=== PATIENT | female | born 1980 | race Caucasian/White ===

== ENCOUNTER 2016-12-12 15:36 | Emergency (ER) | payer SELFPAY ==
--- NOTE | 2016-12-12 16:09 | ED.ADGEN ---
Past History Past Medical History: Other Past Surgical History: Tubal ligation Alcohol Use: Occasionally Drug Use: Marijuana Adult General HPI HPI Patient is a 36-year-old female presents emergency department complaining of dysuria as well as pain associated with a herpes outbreak. Patient states that she is out of her Valtrex which usually takes strain and outbreak. She reports increased urinary frequency but denies any fevers, chills, nausea, vomiting. Review of Systems Review of Systems Constitutional: Denies fever or chills [] Eyes: Denies change in visual acuity, redness, or eye pain [] HENT: Denies nasal congestion or sore throat [] Respiratory: Denies cough or shortness of breath [] Cardiovascular: No additional information not addressed in HPI [] GI: Denies abdominal pain, nausea, vomiting, bloody stools or diarrhea [] : Denies dysuria or hematuria [] Musculoskeletal: Denies back pain or joint pain [] Integument: Denies rash or skin lesions [] Neurologic: Denies headache, focal weakness or sensory changes [] Endocrine: Denies polyuria or polydipsia [] Current Medications Current Medications Current Medications Medications (Trade) Dose Ordered Sig/Ernestine Start Time Stop Time Status Last Admin Dose Admin Ceftriaxone Sodium (Rocephin Im) 1 gm 1X ONCE 12/12/16 16:45 12/12/16 16:46 DC 12/12/16 16:35 1 GM Ceftriaxone Sodium (Rocephin) 1 gm STK-MED ONCE 12/12/16 16:26 12/12/16 16:27 DC Lidocaine HCl (Xylocaine 2% Topical 30gm Tube) 1 natalie 1X ONCE 12/12/16 16:45 12/12/16 16:46 DC 12/12/16 16:38 1 NATALIE Allergies Allergies Allergies Coded Allergies Type Severity Reaction Last Updated Verified No Known Drug Allergies 12/12/16 No Physical Exam Physical Exam Constitutional: Well developed, well nourished, no acute distress, non-toxic appearance. [] HENT: Normocephalic, atraumatic, bilateral external ears normal, oropharynx moist, no oral exudates, nose normal. [] Eyes: PERRLA, EOMI, conjunctiva normal, no discharge. [] Neck: Normal range of motion, no tenderness, supple, no stridor. [] Cardiovascular:Heart rate regular rhythm, no murmur [] Lungs & Thorax: Bilateral breath sounds clear to auscultation [] Abdomen: Bowel sounds normal, soft, no tenderness, no masses, no pulsatile masses. [] Skin: Warm, dry, no erythema, no rash. [] Back: No tenderness, no CVA tenderness. [] Extremities: No tenderness, no cyanosis, no clubbing, ROM intact, no edema. [] Neurologic: Alert and oriented X 3, normal motor function, normal sensory function, no focal deficits noted. [] Psychologic: Affect normal, judgement normal, mood normal. [] Current Patient Data Vital Signs Vital Signs Date Time Temp Pulse Resp B/P Pulse Ox O2 Delivery O2 Flow Rate FiO2 12/12/16 16:51 71 16 130/84 100 Room Air 12/12/16 15:45 98.4 EKG EKG [] Radiology/Procedures Radiology/Procedures [] Course & Med Decision Making Course & Med Decision Making Pertinent Labs and Imaging studies reviewed. (See chart for details) Patient was given a dose of Rocephin here in emergency department. I sent her home with prescriptions for Bactrim, Valtrex, and Diflucan. [] Final Impression Final Impression Urinary tract infection, herpes labialis [] Problems: Dragon Disclaimer Dragon Disclaimer This electronic medical record was generated, in whole or in part, using a voice recognition dictation system. MONCHO BELL MD Dec 12, 2016 16:09
[2016-12-12] MEDS ORDERED: HYDR-971 PO (16:20)
[2016-12-12] MEDS ORDERED: FLUC150T PO (16:20)
[2016-12-12] MEDS ORDERED: SULF1TAB23 PO (16:20)
[2016-12-12] MEDS ORDERED: FAMC500T PO (16:20)
[2016-12-12] MEDS ORDERED: CEFTRIAXONE SODIUM 1 GM VIAL IV ONE (16:26)
[2016-12-12] MEDS ORDERED: LIDOCAINE 2% TOPICAL JELLY 30GM TUBE. TP ONE (16:45)
[2016-12-12] MEDS ORDERED: CEFTRIAXONE IM 1 GM VIAL. IM ONE (16:45)
[2016-12-12 16:51] VITALS: BP 130/84
== END 2016-12-12 17:01 | disposition home or self-care (01) ==
LOC: ER 15:36
DX: N39.0 Urinary tract infection, site not specified (principal); B00.1 Herpesviral vesicular dermatitis; F12.10 Cannabis abuse, uncomplicated
CPT/HCPCS: 96372; 99283; J0696

== ENCOUNTER 2017-04-21 17:53 | Emergency (ER) | payer SELFPAY ==
[~2017-04-21] VITALS: Ht 162.6 cm; Wt 72.6 kg
[~2017-04-21 17:53] MED LIST: FAMC500T PO; FLUC150T PO; HYDR-971 PO; SULF1TAB23 PO
[2017-04-21 19:05] VITALS: BP 136/63
--- NOTE | 2017-04-21 19:28 | PHYS DOC ---
Past History Past Medical History: No Pertinent History, Other Past Surgical History: , Tubal ligation Alcohol Use: Heavy Drug Use: None Adult General Chief Complaint Chief Complaint: SKIN PROBLEM HPI HPI Patient is a 36 year old F who presents with arm swelling. One week ago the patient had an injury resulting in a cut on her left arm. 1-2 days ago she noticed swelling in this area. She does not note any other symptoms. No redness or increased pain. No warmth or fever. No other signs of infection. Review of Systems Review of Systems Constitutional: Denies fever or chills [] Eyes: Denies change in visual acuity, redness, or eye pain [] HENT: Denies nasal congestion or sore throat [] Respiratory: Denies cough or shortness of breath [] Cardiovascular: No additional information not addressed in HPI [] GI: Denies abdominal pain, nausea, vomiting, bloody stools or diarrhea [] : Denies dysuria or hematuria [] Musculoskeletal: Denies back pain or joint pain [] Integument: Negative except history of present illness Neurologic: Denies headache, focal weakness or sensory changes [] Endocrine: Denies polyuria or polydipsia [] Family History Family History Porphyria cutanea tarda Current Medications Current Medications Medications reviewed Allergies Allergies Allergies Coded Allergies Type Severity Reaction Last Updated Verified No Known Drug Allergies 12/12/16 No Physical Exam Physical Exam Constitutional: Well developed, well nourished, no acute distress, non-toxic appearance. [] HENT: Normocephalic, atraumatic, bilateral external ears normal, oropharynx moist, no oral exudates, Eyes: PERRLA, EOMI, conjunctiva normal, no discharge. [] Cardiovascular:Heart rate regular rhythm, no murmur [] Lungs & Thorax: Bilateral breath sounds clear to auscultation [] Skin: Warm, dry, no erythema, no rash. [] Extremities: No tenderness, no cyanosis, no clubbing, ROM intact Neurologic: Alert and oriented X 3, normal motor function, normal sensory function, no focal deficits noted. [] Well-healing laceration on the left dorsal forearm with granulation tissue surrounding scab. Swelling noticed surrounding the laceration without warmth, redness or notable tenderness. Not consistent with infection Psychologic: Affect normal, judgement normal, mood normal. [] Current Patient Data Vital Signs Vital Signs Date Time Temp Pulse Resp B/P (MAP) Pulse Ox O2 Delivery O2 Flow Rate FiO2 04/21/17 18:05 98.2 78 18 99 Room Air Course & Med Decision Making Course & Med Decision Making Pertinent Labs and Imaging studies reviewed. (See chart for details) Imaging was declined. Antibiotics were declined Dragon Disclaimer Dragon Disclaimer This chart was dictated in whole or in part using Voice Recognition software in a busy, high-work load, and often noisy Emergency Department environment. It may contain unintended and wholly unrecognized errors or omissions. Departure Departure: Impression: Primary Impression: Seroma due to trauma Disposition: HOME, SELF-CARE Condition: STABLE Patient Instructions: Abscess Additional Instructions: Bhargavi was seen in the emergency room for an arm injury with swelling. No emergency medical condition was found on history or physical exam. Her symptoms were most consistent with seroma, a pocket of plasma. However a pocket of infection or abscess could not be excluded. No antibiotics were initiated this time however she was encouraged to follow up with her primary care doctor in the next 3-5 days for further management. She was given education regarding abscess and advised to return to the emergency room as soon as possible if she develops new or worsening symptoms TASIA PERALTA MD Apr 21, 2017 19:28
== END 2017-04-21 19:30 | disposition home or self-care (01) ==
LOC: ER 17:53
DX: S50.12XA Contusion of left forearm, initial encounter (principal); W45.8XXA Other foreign body or object entering through skin, initial encounter; Y93.89 Activity, other specified; Y92.89 Other specified places as the place of occurrence of the external cause; Y99.8 Other external cause status
CPT/HCPCS: 99281

== ENCOUNTER 2017-09-07 10:08 | Emergency (ER) | payer OTHER ==
[~2017-09-07] VITALS: Ht 162.6 cm; Wt 94.0 kg
[2017-09-07] MEDS ORDERED: IV NORMAL SALINE 1,000ML 1,000 ML IV SCH (10:18)
[2017-09-07 10:36] LABS: BASO # 0.1 x10^3/uL (0.0-0.2); BASO % 1 % (0-3); EOS # 0.1 x10^3/uL (0.0-0.7); EOS % 2 % (0-3); HEMATOCRIT 36.1 % (36.0-47.0); LYMPH # 1.3 x10^3/uL (1.0-4.8); LYMPH % 23 % (24-48); MEAN CORPUSCULAR HEMOGLOBIN 27 pg (25-35); MEAN CORPUSCULAR HGB CONC 33 g/dL (31-37); MEAN CORPUSCULAR VOLUME 80 fL (79-100); MONO # 0.9 x10^3/uL (0.0-1.1); MONO % 16 % (0-9); NEUT # 3.3 x10^3uL (1.8-7.7); NEUT % 58 % (31-73); PLATELET COUNT 221 x10^3/uL (140-400); RED CELL DISTRIBUTION WIDTH 15.2 % (11.5-14.5); WHITE BLOOD COUNT 5.7 x10^3/uL (4.0-11.0)
--- NOTE | 2017-09-07 10:49 | PHYS DOC ---
Past History Past Medical History: No Pertinent History, Other Past Surgical History: , Tubal ligation Smoking: Cigarettes, Less than 1pk/day Alcohol Use: Occasionally Drug Use: None Adult General Chief Complaint Chief Complaint: ABDOMINAL PAIN [facility] HPI 37-year-old female patient complaining of right lower quadrant and suprapubic pain as an intermittent sharp pain that started 4 days ago and became constant since yesterday morning without radiation. Patient complaining of change of pain with suspicion position with her pain is associated with nausea and anorexia. Patient states she was treated for bacterial vaginitis several months ago but still has some discharged with her urine dysuria. Patient denies fever and chills, chest pain, shortness of breath, diarrhea and constipation. Patient states she took ibuprofen without change of her pain. Patient denies having new sexual partner or vaginal bleeding or discharge. Patient has history of tubal ligation and denies . Review of Systems Review of Systems Constitutional: Denies fever or chills [] Eyes: Denies change in visual acuity, redness, or eye pain [] HENT: Denies nasal congestion or sore throat [] Respiratory: Denies cough or shortness of breath [] Cardiovascular: No additional information not addressed in HPI [] GI: Reports abdominal pain, nausea, denied vomiting, bloody stools or diarrhea [ ] : Denies dysuria or hematuria , reports urinary frequency[] Musculoskeletal: Denies back pain or joint pain [] Integument: Denies rash or skin lesions [] Neurologic: Denies headache, focal weakness or sensory changes [] Endocrine: Denies polyuria or polydipsia [] All other systems were reviewed and found to be within normal limits, except as documented in this note. Current Medications Current Medications Current Medications Medications (Trade) Dose Ordered Sig/Ernestine Start Time Stop Time Status Last Admin Dose Admin Ondansetron HCl (Zofran) 4 mg 1X ONCE 09/07/17 10:50 09/07/17 10:51 Sodium Chloride 1,000 ml @ 1,000 mls/hr Q1H 09/07/17 10:18 09/07/17 11:17 Allergies Allergies Allergies Coded Allergies Type Severity Reaction Last Updated Verified No Known Drug Allergies 12/12/16 No Physical Exam Physical Exam Constitutional: Well developed, well nourished, mild distress, non-toxic appearance, anxious. [] HENT: Normocephalic, atraumatic, bilateral external ears normal, oropharynx moist, no oral exudates, nose normal. [] Eyes: PERRLA, EOMI, conjunctiva normal, no discharge. [] Neck: Normal range of motion, no tenderness, supple, no stridor. [] Cardiovascular:Heart rate regular rhythm, no murmur [] Lungs & Thorax: Bilateral breath sounds clear to auscultation [] Abdomen: Bowel sounds normal, soft, no tenderness, no masses, no pulsatile masses, right lower quadrant and suprapubic guarding. [] Skin: Warm, dry, no erythema, no rash. [] Back: No tenderness, no CVA tenderness. [] Extremities: No tenderness, no cyanosis, no clubbing, ROM intact, no edema. [] Neurologic: Alert and oriented X 3, normal motor function, normal sensory function, no focal deficits noted. [] Psychologic: Affect normal, judgement normal, mood normal. [] Pelvic exam with present of N showed moderate vaginal discharge with left adnexal fullness Current Patient Data Vital Signs Vital Signs Date Time Temp Pulse Resp B/P (MAP) Pulse Ox O2 Delivery O2 Flow Rate FiO2 09/07/17 10:19 97.8 93 18 99 Room Air Lab Results Laboratory Tests Test 09/07/17 10:25 White Blood Count 5.7 x10^3/uL (4.0-11.0) Red Blood Count 4.50 x10^6/uL (3.50-5.40) Hemoglobin 12.0 g/dL (12.0-15.5) Hematocrit 36.1 % (36.0-47.0) Mean Corpuscular Volume 80 fL (79-100) Mean Corpuscular Hemoglobin 27 pg (25-35) Mean Corpuscular Hemoglobin Concent 33 g/dL (31-37) Red Cell Distribution Width 15.2 % (11.5-14.5) H Platelet Count 221 x10^3/uL (140-400) Neutrophils (%) (Auto) 58 % (31-73) Lymphocytes (%) (Auto) 23 % (24-48) L Monocytes (%) (Auto) 16 % (0-9) H Eosinophils (%) (Auto) 2 % (0-3) Basophils (%) (Auto) 1 % (0-3) Neutrophils # (Auto) 3.3 x10^3uL (1.8-7.7) Lymphocytes # (Auto) 1.3 x10^3/uL (1.0-4.8) Monocytes # (Auto) 0.9 x10^3/uL (0.0-1.1) Eosinophils # (Auto) 0.1 x10^3/uL (0.0-0.7) Basophils # (Auto) 0.1 x10^3/uL (0.0-0.2) EKG EKG [] Radiology/Procedures Radiology/Procedures [] Course & Med Decision Making Course & Med Decision Making Pertinent Labs and Imaging studies reviewed. (See chart for details) . CT of abdomen and pelvis and pelvic ultrasound showed a large right ovary and cystic mass with possible internal hemorrhage without torsion. Addition of patient in ER showed a young lady with right pelvic pain for several days. Patient had a large oriented cystic mass. [facility] transfer line was contacted at [phone] and oncology concrete float maker recommended patient following as outpatient with oncology clinic. Patient informed about plan of care that was very upset about not admitting at hospital but later on she was agreed with plan of care. With mild showed bacterial vaginitis. Patient informed about test results and needs to follow up with oncology concrete float maker. Dragon Disclaimer Dragon Disclaimer This electronic medical record was generated, in whole or in part, using a voice recognition dictation system. Departure Departure: Impression: Primary Impression: Ovarian cystic mass Additional Impressions: Bacterial vaginitis Pelvic pain Tobacco abuse Tobacco abuse counseling Anxiety Nephrolithiasis Disposition: HOME, SELF-CARE (At 1553) Condition: IMPROVED Referrals: PCPDARIUS (PCP) Patient Instructions: Ovarian Cyst Additional Instructions: Follow-up with oncology gynecology clinic call [phone] to make an appointment Return to ER if not getting better Scripts Hydrocodone Bit/Acetaminophen (NORCO 5-325 TABLET) 1 Each Tablet 1 TAB PO PRN Q6HRS Y for PAIN, #14 TAB 0 Refills Prov: MARVEL ELIZONDO MD 09/07/17 Metronidazole (FLAGYL) 500 Mg Tablet 2000 MG PO ONCE for 1 Day, TAB Prov: MARVEL ELIZONDO MD 09/07/17 Problem Qualifiers MARVEL ELIZONDO MD Sep 07, 2017 10:49
[2017-09-07 10:50] LABS: ALBUMIN 3.7 g/dL (3.4-5.0); ALBUMIN/GLOBULIN RATIO 0.9 (1.0-1.7); CALCIUM 8.7 mg/dL (8.5-10.1); CREATININE 0.8 mg/dL (0.6-1.0); GFR 80.7; POTASSIUM 4.2 mmol/L (3.5-5.1); TOTAL BILIRUBIN 0.5 mg/dL (0.2-1.0)
[2017-09-07] MEDS ORDERED: ONDANSETRON PF 4 MG/2 ML VIAL. IV ONE (10:50)
[2017-09-07 11:12] LABS: BACTERIA,URINE FEW /HPF (0-FEW); BILIRUBIN,URINE NEG (NEG); CLARITY,URINE HAZY; COLOR,URINE YELLOW; GLUCOSE,URINE NEG (NEG); NITRITE,URINE NEG (NEG); SQUAMOUS EPITHELIAL CELL,UR MOD /LPF; UROBILINOGEN,URINE 0.2 mg/dL (0.2 mg/dL)
[2017-09-07] MEDS ORDERED: KETOROLAC 30 MG/ML VIAL. IV ONE (11:30)
--- NOTE | 2017-09-07 11:33 | RAD ---
CT Abdomen and Pelvis without contrast History: Right lower quadrant pain Technique: Noncontrast CT imaging was performed of the abdomen and pelvis. Multiplanar images are reviewed. Exposure: One or more of the following individualized dose reduction techniques were utilized for this examination: 1. Automated exposure control 2. Adjustment of the mA and/or kV according to patient size 3. Use of iterative reconstruction technique. Comparison: None Findings: There is a large heterogeneous partially cystic lesion of the right pelvis, some interspersed areas of solid-appearing density. This in greatest dimension measures up to approximately 13.5 cm CC by 8.8 cm transverse by 7.9 cm AP. There is no abnormality limited visualized lung bases.Accurate evaluation of abdominal visceral organs is limited without intravenous contrast. There is no obvious abnormality of the spleen, liver, or pancreas. Gallbladder is present without obvious intraluminal abnormality by CT. There is no adrenal nodularity. There is 0.2 cm nonobstructive mid to superior right renal calculus and punctate calculus at the mid left kidney. There is no hydronephrosis of either kidney. The ureters are poorly defined in the pelvis and there are phleboliths in the pelvis bilaterally. Accurate evaluation of bowel is limited without oral contrast. At least a segment of normal appendix is believed to be visualized inferior to the cecum. There is no significant free air, free fluid, bowel dilatation. There Impression: 1. There is a large heterogeneous partially solid and cystic lesion of the right pelvis which probably arises from the right adnexa. Given the areas of associated apparent solid density, cystadenoma and cystadenocarcinoma are included in the differential considerations. Right ovarian torsion is not excluded by this exam. 2. There are very small nonobstructive bilateral renal calculi, no hydronephrosis. Ureters in the pelvis are poorly visualized, phleboliths in the pelvis. Electronically signed by: Alexandro Frias MD (09/07/2017 11:30 AM) [id number]
--- NOTE | 2017-09-07 12:47 | RAD ---
US PELVIS W/TV Clinical Indication: RLQ pain x's 24 to [address] done today and showed Rt adnexal mass Comparison: CT abdomen and pelvis without contrast, same day at 1115 hours. TECHNIQUE: Real-time ultrasound imaging of the pelvis using transabdominal and transvaginal window is performed. Findings: The left ovary is normal. No cul-de-sac free fluid is seen. Uterus measures 11.2 x 5.2 x 4.2 cm. Transvaginally the endometrial stripe is normal measuring 9 mm. Right ovary measures 12.5 cm in length. There is normal blood flow in the right ovary. There is a complex right ovarian mass. There is a dominant cystic component measuring 6.8 x 6.6 x 6.2 cm. There are internal echoes in the cyst. There are other smaller cystic components. There may be a hemorrhagic component, better appreciated on prior CT. IMPRESSION: Normal blood flow in the right ovary. Large complex mass of the right ovary. Cystic ovarian neoplasm cannot be excluded. Electronically signed by: Ramon Henao MD (09/07/2017 12:43 PM) [id number]
[2017-09-07 15:09] VITALS: BP 148/71
[2017-09-07] MEDS ORDERED: HYDR-971 PO (15:57)
[2017-09-07] MEDS ORDERED: METR500T PO (15:57)
[2017-09-08 20:11] LABS: CHLAMYDIA PROBE Negative (Negative)
== END 2017-09-07 16:14 | disposition home or self-care (01) ==
LOC: ER 10:08
DX: N83.201 Unspecified ovarian cyst, right side (principal); N20.0 Calculus of kidney; N76.0 Acute vaginitis; B96.89 Other specified bacterial agents as the cause of diseases classified elsewhere; F41.9 Anxiety disorder, unspecified; Z71.6 Tobacco abuse counseling; F17.210 Nicotine dependence, cigarettes, uncomplicated; Z98.51 Tubal ligation status; Z98.890 Other specified postprocedural states
CPT/HCPCS: 36415; 74176; 76830; 76856; 80053; 81001; 81025; 83690; 85025; 87491; 87591; 96361; 96374; 96375; 99285; J1885; J2405; Q0111; J7030

== ENCOUNTER → 2018-10-02 | Outpatient (CLI) | payer BC ==
[~2018-10-02] MED LIST changes: +HYDR-3165 PO; -HYDR-971 PO; +METR500T PO
--- NOTE | 2018-10-02 16:40 | RAD ---
EXAM: Right knee, 2 views. HISTORY: Pain. COMPARISON: None. FINDINGS: 2 views of the right knee are obtained. There is no fracture, dislocation or subluxation. There is a tiny corticated ossicle anterior to the patella. There is trace joint fluid without a significant joint effusion. IMPRESSION: No acute osseous finding. Electronically signed by: Neva Carlos MD (10/02/2018 4:35 PM) [id number]
== END | disposition home or self-care (01) ==
LOC: RAD 16:11
PROVIDERS: ATTEND Physician Assistant
DX: M25.561 Pain in right knee (principal)
CPT/HCPCS: 73560

== ENCOUNTER 2021-08-01 12:21 | Emergency (ER) | payer BC, OTHER ==
[~2021-08-01] VITALS: Ht 162.6 cm; Wt 94.0 kg
[~2021-08-01 12:21] MED LIST changes: -FAMC500T PO; +FAMC500T3 PO
[2021-08-01 12:25] VITALS: BP 145/84
[2021-08-01] MEDS ORDERED: AMOX1TAB61 PO (12:39)
--- NOTE | 2021-08-01 12:40 | PHYS DOC ---
Past History Past Medical History: No Pertinent History, Other Past Surgical History: , Tubal ligation Smoking: Cigarettes, Less than 1pk/day Alcohol Use: Occasionally Drug Use: None General Adult EDM: Chief Complaint: EARACHE/EAR PAIN HPI: HPI: Patient is a 41-year-old female who presents to the emergency department for right-sided ear pain and left hearing that started 5 days ago. Patient denies fevers, nasal congestion or drainage, sore throat, cough. Patient reports that she was on an antibiotic recently for finger infection Review of Systems: Review of Systems: Constitutional: See HPI HENT: See HPI Respiratory: See HPI Allergies: Allergies: Allergies Coded Allergies Type Severity Reaction Last Updated Verified No Known Drug Allergies 12/12/16 No Physical Exam: PE: Constitutional: Well developed, well nourished, no acute distress, non-toxic appearance. [] HENT: Normocephalic, atraumatic, bilateral external ears normal, oropharynx moist, mild swelling noted to ear canal, erythematous tympanic membrane that is intact, no oral exudates, nose normal. [] Eyes: PERRLA, EOMI, conjunctiva normal, no discharge. [] Neck: Normal range of motion, no stridor Cardiovascular:Heart rate regular rhythm, no murmur [] Lungs & Thorax: Bilateral breath sounds clear to auscultation [] Abdomen: Bowel sounds normal, soft, no tenderness, no masses, no pulsatile masses. [] Skin: Warm, dry, no erythema, no rash. [] Back: Normal range of motion Extremities: No tenderness, no cyanosis, no clubbing, ROM intact, no edema. [] Neurologic: Alert and oriented X 3, normal motor function, normal sensory function, no focal deficits noted. [] Psychologic: Affect normal, judgement normal, mood normal. [] EKG: EKG: [] Radiology/Procedures: Radiology/Procedures: [] Heart Score: C/O Chest Pain: N/A Risk Factors: Risk Factors: DM, Current or recent (<one month) smoker, HTN, HLP, family history of CAD, obesity. Risk Scores: Score 0 - 3: 2.5% MACE over next 6 weeks - Discharge Home Score 4 - 6: 20.3% MACE over next 6 weeks - Admit for Clinical Observation Score 7 - 10: 72.7% MACE over next 6 weeks - Early Invasive Strategies Course & Med Decision Making: Course & Med Decision Making Pertinent Labs and Imaging studies reviewed. (See chart for details) [] Patient presents to the emergency department for right ear pain. Upon physical exam, it appears that patient has otitis media. Patient reports that she was on an antibiotic in the last month for a skin infection to her finger. Patient be discharged home with Augmentin. Patient advised to take Tylenol and ibuprofen for her pain and follow-up with her primary care provider. I discussed with patient all findings and diagnostic testing as well as the need to follow-up with PCP for further evaluation and treatment or return to the ER if any new or worsening symptoms. Strict return precautions were also discussed at length. Patient voiced understanding and agreement with the plan. Patient is hemodynamically stable at the time of disposition. Dragon Disclaimer: Dragon Disclaimer: This electronic medical record was generated, in whole or in part, using a voice recognition dictation system. Departure Departure: Impression: Primary Impression: Otitis media Qualified Codes: H66.90 - Otitis media, unspecified, unspecified ear Disposition: HOME / SELF CARE / HOMELESS Condition: GOOD Referrals: NASH ROSSI MD (PCP) Patient Instructions: Otitis Media, Adult Additional Instructions: You were seen in the emergency department for right ear pain. You have a ear infection. Please take the antibiotic as directed and follow-up with your primary care provider on Monday. You take Tylenol and ibuprofen for your pain. Return to the emergency department if you develop worsening of your pain, high fevers refractory to treatment, decreased hearing, difficulty breathing or swallowing shortness of breath. Scripts Amoxicillin/Potassium Clav (AUGMENTIN 875-125 TABLET) 1 Each Tablet 1 TAB PO BID for otitis media for 10 Days, #20 TAB 0 Refills Prov: BLACK STOVALL OFFAL ROLLER 08/01/21 BLACK STOVALL OFFAL ROLLER Aug 01, 2021 12:40
== END 2021-08-01 13:09 | disposition home or self-care (01) ==
LOC: ER 12:21
DX: H66.91 Otitis media, unspecified, right ear (principal); F17.210 Nicotine dependence, cigarettes, uncomplicated
CPT/HCPCS: 99283